=== PATIENT | male | born 1990 | race Caucasian/White ===

== ENCOUNTER → 2019-05-31 14:30 | Outpatient (BNVA) | payer BC, SELFPAY | PROVIDERS: Family Provider Pediatrics Adolescent Medicine; PCP Pediatrics Adolescent Medicine; Visit Provider Nurse Practitioner | DX: F90.0 Attention-deficit hyperactivity disorder, predominantly inattentive type (principal); F33.1 Major depressive disorder, recurrent, moderate | CPT/HCPCS: 99213 ==

== ENCOUNTER → 2019-08-30 08:25 | Outpatient (BNVA) | payer BC, SELFPAY | PROVIDERS: Family Provider Pediatrics Adolescent Medicine; PCP Pediatrics Adolescent Medicine; Visit Provider Nurse Practitioner | DX: F33.1 Major depressive disorder, recurrent, moderate (principal); F90.0 Attention-deficit hyperactivity disorder, predominantly inattentive type | CPT/HCPCS: 99213 ==

== ENCOUNTER → 2019-11-27 07:54 | Outpatient (BNVA) | payer BC, SELFPAY | PROVIDERS: Family Provider Pediatrics Adolescent Medicine; PCP Pediatrics Adolescent Medicine; Visit Provider Nurse Practitioner | DX: F33.1 Major depressive disorder, recurrent, moderate (principal); F90.0 Attention-deficit hyperactivity disorder, predominantly inattentive type; F41.1 Generalized anxiety disorder | CPT/HCPCS: 99214 ==

== ENCOUNTER → 2019-12-18 07:40 | Outpatient (BNVA) | payer BC, SELFPAY | PROVIDERS: Family Provider Pediatrics Adolescent Medicine; PCP Pediatrics Adolescent Medicine; Visit Provider Nurse Practitioner | DX: F90.0 Attention-deficit hyperactivity disorder, predominantly inattentive type (principal); F33.1 Major depressive disorder, recurrent, moderate | CPT/HCPCS: 99214 ==

== ENCOUNTER → 2020-01-10 08:09 | Outpatient (BNVA) | payer BC, SELFPAY | PROVIDERS: Family Provider Pediatrics Adolescent Medicine; PCP Pediatrics Adolescent Medicine; Visit Provider Nurse Practitioner | DX: F33.1 Major depressive disorder, recurrent, moderate (principal); F90.0 Attention-deficit hyperactivity disorder, predominantly inattentive type | CPT/HCPCS: 99214 ==

== ENCOUNTER → 2020-02-06 07:59 | Outpatient (BNVA) | payer BC, SELFPAY | PROVIDERS: Family Provider Pediatrics Adolescent Medicine; PCP Pediatrics Adolescent Medicine; Visit Provider Nurse Practitioner | DX: F33.1 Major depressive disorder, recurrent, moderate (principal); F90.0 Attention-deficit hyperactivity disorder, predominantly inattentive type | CPT/HCPCS: 99214 ==

== ENCOUNTER → 2020-03-17 07:35 | Outpatient (BNVA) | payer BC, SELFPAY | PROVIDERS: Family Provider Pediatrics Adolescent Medicine; PCP Pediatrics Adolescent Medicine; Visit Provider Nurse Practitioner | DX: F33.1 Major depressive disorder, recurrent, moderate (principal); F90.0 Attention-deficit hyperactivity disorder, predominantly inattentive type | CPT/HCPCS: 99214 ==

== ENCOUNTER → 2020-05-12 08:09 | Outpatient (BNVA) | payer BC, SELFPAY | PROVIDERS: Family Provider Pediatrics Adolescent Medicine; PCP Pediatrics Adolescent Medicine; Visit Provider Nurse Practitioner | DX: F33.1 Major depressive disorder, recurrent, moderate (principal); F90.0 Attention-deficit hyperactivity disorder, predominantly inattentive type | CPT/HCPCS: 99214 ==

== ENCOUNTER → 2020-07-16 07:34 | Outpatient (BNVA) | payer BC, SELFPAY | PROVIDERS: Family Provider Pediatrics Adolescent Medicine; PCP Pediatrics Adolescent Medicine; Visit Provider Nurse Practitioner | DX: F33.1 Major depressive disorder, recurrent, moderate (principal); F90.0 Attention-deficit hyperactivity disorder, predominantly inattentive type; F41.1 Generalized anxiety disorder | CPT/HCPCS: 99214 ==

== ENCOUNTER → 2020-10-16 07:51 | Outpatient (BNVA) | payer SELFPAY | PROVIDERS: Family Provider Pediatrics Adolescent Medicine; PCP Pediatrics Adolescent Medicine; Visit Provider Nurse Practitioner | DX: F33.1 Major depressive disorder, recurrent, moderate (principal); F90.0 Attention-deficit hyperactivity disorder, predominantly inattentive type | CPT/HCPCS: 99214 ==

== ENCOUNTER → 2021-06-15 14:24 | Outpatient (BNVA) | payer SELFPAY | PROVIDERS: Family Provider Pediatrics Adolescent Medicine; PCP Pediatrics Adolescent Medicine; Visit Provider Nurse Practitioner | DX: F19.939 Other psychoactive substance use, unspecified with withdrawal, unspecified (principal) | CPT/HCPCS: 80307 ==

== ENCOUNTER 2024-12-11 13:19 | Inpatient (IN) | payer SELFPAY ==
[2024-12-11] VITALS (10 sets, daily range): BP systolic 105–149; BP diastolic 54–120; PULSE 83–132; RESP 16–20; TEMP 36.7–37.5; O2SAT 90–98; BMI 33.2
--- NOTE | 2024-12-11 13:40 | ED_ITS ---
HPI - Abdominal Pain 2 General: Chief Complaint: Abdominal Pain Stated Complaint: buring pain in abd, nausea Time Seen by Provider: 12/11/24 13:31 History of Present Illness: 34-year-old male presents emergency room with periumbilical abdominal pain that began yesterday radiates into the right lower quadrant at times. No previous abdominal surgeries denies dysuria urgency or frequency. Has had a few loose stools but no donte diarrhea no hematochezia melena Associated Symptoms: Reports nausea and vomiting; Denies chills, dysuria, fever(s), hematochezia, hematemesis and melena Related Data Home Medications ?Medication ?Instructions ?Recorded ?Confirmed bupropion HCl 150 mg 24 hr tablet, 150 mg PO QAM 12/1112/11/24 extended release Allergies Allergy/AdvReac Type Severity Reaction Status Date / Time No Known Allergies Allergy Verified 08/06/24 10:10 Review of Systems 2 Const: Denies: fever(s) or chills Card: Denies: chest pain Resp: Denies: dyspnea GI: Reports: abdominal pain, nausea and vomiting; Denies: hematemesis, hematochezia or melena : Denies: dysuria, urinary frequency or urinary urgency Musc: Denies: neck pain or back pain Skin/Breast: Denies: rash PFSH ED 2 PFSH: Medical History Nicotine vapor product user Abstinent from drug misuse Psychiatric care Generalized anxiety disorder Major depressive disorder, recurrent, moderate Attention-deficit hyperactivity disorder, predominantly inattentive type Social History Smoking and tobacco/nicotine status: current every day tobacco/nicotine user cigarettes Packs smoked per day: 0.5 Years cigarettes smoked: 9 Quit status (tobacco/nicotine): has tried quititng Number of times tried to quit tobacco: 7 Second hand smoke exposure: Yes Alcohol intake: current Alcohol intake frequency: holidays/special occasions only Physical Exam 2 Const: GENERAL APPEARANCE: cooperative ORIENTATION/CONSCIOUSNESS: Yes awake, Yes oriented to person, Yes oriented to place and Yes oriented to time HENMT: COMMON NORMALS: normocephalic, atraumatic and hearing grossly normal bilaterally HEAD & SCALP: normocephalic and atraumatic Resp: COMMON NORMALS: normal respiratory effort, No retractions, No use of accessory muscles and clear to auscultation bilaterally AUSCULTATION: clear to auscultation bilaterally Cardio: COMMON NORMALS: regular rate, regular rhythm and No murmurs present (Cardio) RATE: regular rate RHYTHM: regular rhythm GI: COMMON NORMALS: Soft to palpation and No hepatosplenomegaly present A USCULTATION: Yes normoactive bowel sounds PALPATION: Yes Soft to palpation, No Tenderness to palpation present (GI), No Guarding due to palpation present (GI) and Yes No hepatosplenomegaly present Extremity: COMMON NORMALS: normal to inspection, capillary refill normal, no clubbing, cyanosis or edema, no calf tenderness and no pedal edema Neuro: SENSORIUM/ORIENTATION: Yes oriented to person, Yes oriented to place and Yes oriented to time Skin: COMMON NORMALS: no rashes or lesions noted GENERAL SKIN EXAM: no rashes or lesions noted Course 2 Vital Signs: Vital signs: Vital Signs Temperature 98.0 F 12/11/24 13:23 Pulse Rate 94 12/11/24 13:23 Respiratory Rate 16 12/11/24 13:23 Blood Pressure 147/91 12/11/24 13:23 Pulse Oximetry 96 12/11/24 13:23 Oxygen Delivery Me thod Room Air 12/11/24 13:23 MDM - Abdominal Pain Medical Decision Making Acute appendicitis on CT with significant leukocytosis patient given fluids and Zosyn discussed Dr. Juárez will admit to the floor, sick patient to surgery later this afternoon for acute appendectomy. Medical Records I reviewed the patient's medical records. Lab Data I reviewed the patient's lab results. 12/11/24 13:42 12/11/24 13:42 Labs/Radiology: Radiology Impressions Abdomen/Pelvis CT 12/11/24 14:06 IMPRESSION: 1. Acute appendicitis with a large amount of surrounding edema and free fluid adjacent to the cecum and extending into the pelvis. Appendicoliths are noted. Appendicolith at the base of the appendix and also within the tip of the appendix. Highly suspicious for appendiceal rupture. There is no abscess. There are a few adjacent reactive lymph nodes. 2. No renal obstruction. RIGHT ureter passes closely through the area of inflammation along the RIGHT psoas muscle. Laboratory Results WBC 27.71 10^3/uL (3.29-11.43) H 12/11/24 13:42 RBC 5.44 10^6/uL (3.85-5.65) 12/11/24 13:42 Hgb 15.20 g/dL (11.27-16.99) 12/11/24 13:42 Hct 44.3 % (37-53) 12/11/24 13:42 MCV 81.4 fl (82-101) L 12/11/24 13:42 MCH 27.9 pg (27-33) 12/11/24 13:42 MCHC 34.3 g/dL (30-55) 12/11/24 13:42 RDW 13.1 % (12.1-15.1) 12/11/24 13:42 Plt Count 237 10^3/cmm (157-399) 12/11/24 13:42 MPV 9.3 fL (7.4-10.4) 12/11/24 13:42 Neut % (Auto) 82.0 % 12/11/24 13:42 Lymph % (Auto) 8.4 % 12/11/24 13:42 [place] % (Auto) 8.8 % 12/11/24 13:42 Eos % (Auto) 0.0 % 12/11/24 13:42 Baso % (Auto) 0.2 % 12/11/24 13:42 Neut # (Auto) 22.74 10^3/uL (1.8-7.7) H 12/11/24 13:42 Lymph # (Auto) 2.3 10^3/uL (0.8-4.8) 12/11/24 13:42 [place] # (Auto) 2.4 10^3/uL (0.2-0.9) H 12/11/24 13:42 Eos # (Auto) 0.0 10^3/uL (0.0-0.8) 12/11/24 13:42 Baso # (Auto) 0.1 10^3/uL (0.0-0.1) 12/11/24 13:42 Nucleated RBC % (auto) 0 % 12/11/24 13:42 Nucleated RBCs # 0.0 /100WBC 12/11/24 13:42 Sodium 136 mmol/L (136-145) 12/11/24 13:42 Potassium 4.2 mmol/L (3.5-5.1) 12/11/24 13:42 Chloride 98 mmol/L (98-107) 12/11/24 13:42 Carbon Dioxide 23 mmol/L (22-29) 12/11/24 13:42 Anion Gap 19.2 (5-19) H 12/11/24 13:42 BUN 6 mg/dL (6-20) 12/11/24 13:42 Creatinine 0.7 mg/dL (0.7-1.2) 12/11/24 13:42 GFR Calculation 130.7 mL/min (90-130) H 12/11/24 13:42 Glucose 118 mg/dL (65-115) H 12/11/24 13:42 Calculated Osmolality 281 mOsm/kg (285-295) L 12/11/24 13:42 Calcium 9.3 mg/dL (8.5-10.5) 12/11/24 13:42 Total Bilirubin 0.8 mg/dL (0.15-1.2) 12/11/24 13:42 AST 17 U/L (0-40) 12/11/24 13:42 ALT 20 U/L (0-41) 12/11/24 13:42 Alkaline Phosphatase 64 U/L (40-130) 12/11/24 13:42 Total Protein 7.5 g/dL (6.6-8.7) 12/11/24 13:42 Albumin 4.5 g/dL (3.5-5.2) 12/11/24 13:42 Globulin 3.0 g/dL (1.3-4.6) 12/11/24 13:42 Lipase 12 U/L (13-60) L 12/11/24 13:42 All radiology interpretation(s) finalized by discharge Discharge Plan Discharge Patient Disposition: Placed in Observation Clinical Impression: Acute appendicitis Coding Level of Care Code ED Fly Rail Operator for Radha Sanchez
[2024-12-11 13:48] LABS: Hematocrit 44.3 % (37-53); Hemoglobin 15.20 g/dL (11.27-16.99); Mean Corpuscular HGB Conc 34.3 g/dL (30-55); Mean Corpuscular Hemoglobin 27.9 pg (27-33); Mean Corpuscular Volume 81.4 fl (82-101); Nucleated Red Blood Cells % 0 %; Platelet Count 237 10^3/cmm (157-399); Red Blood Count 5.44 10^6/uL (3.85-5.65); White Blood Count 27.71 10^3/uL (3.29-11.43)
[2024-12-11 14:06] LABS: Alanine Aminotransferase 20 U/L (0-41); Albumin Level 4.5 g/dL (3.5-5.2); Alkaline Phosphatase 64 U/L (40-130); Blood Urea Nitrogen 6 mg/dL (6-20); Calcium 9.3 mg/dL (8.5-10.5); Carbon Dioxide 23 mmol/L (22-29); Chloride 98 mmol/L (98-107); Creatinine Clr Calc Pharmacy 147.4166; Globulin 3.0 g/dL (1.3-4.6); Glucose 118 mg/dL (65-115); Lipase 12 U/L (13-60); Osmolality Calculated 281 mOsm/kg (285-295); Sodium 136 mmol/L (136-145); Total Protein 7.5 g/dL (6.6-8.7)
--- NOTE | 2024-12-11 14:06 | CT_ITS ---
WS: [id number] CT ABDOMEN AND PELVIS WITH CONTRAST HISTORY: Nausea and vomiting with abdominal pain. TECHNIQUE: Imaging performed of the abdomen and pelvis with IV contrast. Single phase imaging of the abdomen. Coronal and sagittal reformats are submitted. All CT scans at [facility] use at least one of these dose optimization techniques: automated exposure control; mA and/or kV adjustment per patient size (includes targeted exams where dose is matched to clinical indication); or iterative reconstruction. IV CONTRAST: Omnipaque 350; 100 mL IV. Oral contrast: No DLP: 842.03 mGy.cm COMPARISON: None available. Lower thorax: Lung bases are clear. Heart is normal size. No hiatal hernia. Liver/biliary system: Normal size with no intrahepatic dilatation. Gallbladder: Normal. No gallstones or wall thickening. No pericholecystic fluid. Pancreas: Normal size pancreas and pancreatic duct. No adjacent inflammation. Spleen: Normal size spleen. No mass or infarct. Adrenal glands: Normal. Right kidney: Normal. Left kidney: Normal. Aorta: Normal. Lymphadenopathy: None. Free fluid: Small amount of free fluid in the pelvis. GI tract: Significant acute inflammatory process in the RIGHT lower quadrant involving the appendix. There is an appendicolith at the base of the appendix. The appendix is dilated with wall enhancement and fluid-filled. The appendix measures 11 mm in diameter. Additional appendicolith in the tip of the appendix. There is edema and fluid surrounding the appendix. There is also adjacent fluid extending posterior to the cecum and extending along the RIGHT psoas muscle. There are a few small reactive lymph nodes associated with the inflammatory process. There is a small amount of air remaining within the lumen and at the tip of the appendix. Abdominal wall: Fat containing umbilical hernia. Pelvis: Small amount of free fluid. Bladder is negative. Bones: Unremarkable. CT/CT abdomen pelvis w con* [id number] IMPRESSION: 1. Acute appendicitis with a large amount of surrounding edema and free fluid adjacent to the cecum and extending into the pelvis. Appendicoliths are noted. Appendicolith at the base of the appendix and also within the tip of the append ix. Highly suspicious for appendiceal rupture. There is no abscess. There are a few adjacent reactive lymph nodes. 2. No renal obstruction. RIGHT ureter passes closely through the area of infla mmation along the RIGHT psoas muscle.
[2024-12-11 14:10] LABS: Anion Gap 19.2 (5-19); Potassium 4.2 mmol/L (3.5-5.1)
[2024-12-11 14:11] LABS: Aspartate Amino Transferase 17 U/L (0-40)
[2024-12-11] MEDS: iohexol 350 mg/mL 500 mL Btl (per mL) IV (14:15)
[2024-12-11] MEDS: piperacillin-tazobactam 3.375 GM in sodium chloride 0.9% (plus) 50 ML IV ×2 (15:42→21:51)
[2024-12-11] MEDS: morphine 4 mg/mL SDV 1 mL IVP (15:44)
[2024-12-11 16:04] LABS: Glucose Urine UA Negative (Normal); Nitrate Urine Negative (Negative)
[2024-12-11 16:10] LABS: Add Urine Microscopic? YES
[2024-12-11 16:15] LABS: Specific Gravity, Urine 1.075 (1.005-1.030)
[2024-12-11] MEDS: D5-NS 0.45% + KCL 20 mEq 20 MEQ/1,000 ML BAG 125 MEQ IV (17:02)
--- NOTE | 2024-12-11 18:23 | P.HP_ITS ---
Providers/Chief Complaint 2 Admitting Physician: Efren Juárez MD Chief Complaint: buring pain in abd, nausea History of Present Illness Zachary Oconnell is a 34 year old male who presented with acute appendicitis. Reports 1-2 days of pain. Nausea. Non peritonitic. TTP RLQ. Imaging consistent with acute appendicitis. WBC 27. HDs adequate. Afebrile. Medications/Allergies Home Medications ?Medication ?Instructions ?Recorded ?Confirmed ?Last Taken ?Type bupropion HCl 150 mg 24 hr tablet, 150 mg PO QAM 12/1112/11/24 Unknown History extended release Allergies Allergy/AdvReac Type Severity Reaction Status Date / Time No Known Allergies Allergy Verified 08/06/24 10:10 PFSH Acute 2 PFSH: Medical History (Updated 12/11/24 @ 15:27 by Dev Lanier DO) Nicotine vapor product user Abstinent from drug misuse Psychiatric care Generalized anxiety disorder Major depressive disorder, recurrent, moderate Attention-deficit hyperactivity disorder, predominantly inattentive type Social History Smoking and tobacco/nicotine status: current every day tobacco/nicotine user cigarettes Packs smoked per day: 0.5 Years cigarettes smoked: 9 Quit status (tobacco/nicotine): has tried quititng Number of times tried to quit tobacco: 7 Second hand smoke exposure: Yes Alcohol intake: current Alcohol intake frequency: holidays/special occasions only Vitals/I&O/Wt Last Vital Signs Temp 98.0 F 12/11/24 13:23 Pulse 85 12/11/24 15:00 Resp 16 12/11/24 15:44 BP 139/85 12/11/24 15:00 Pulse Ox 97 12/11/24 15:44 O2 Del Method Room Air 12/11/24 13:23 12/11/24 12/11/24 12/11/24 06:59 14:59 22:59 Intake Total 1050 / 1050 Balance 1050 / 1050 Weight last 48 hrs Weight 191 lb Physical Exam 2 Narrative: rrr unlabored breathing ra abdomen soft, ttp rlq, non peritonitic Data 12/11/24 13:42 12/11/24 13:42 A&P Assessment and plan 1. Acute appendicitis: Plan: 34 yo male admitted with acute appendicitis. Discussed risks and benefits and patient agreed to proceed with laparoscopic appendectomy, possible open. Started antibiotics. Will proceed to OR when available. PDMP PDMP Reviewed: Not Reviewed Attestations 2 Medical Necessity Statement*: IVFs, IV pain meds, IV antibiotics Coding Level of Care Code 77559 Diagnoses Acute appendicitis K35.80
--- NOTE | 2024-12-11 23:50 | PC.NURSE ---
Pt has been offered pain meds numerous times and he states he does not need them.
[2024-12-12] VITALS (19 sets, daily range): BP systolic 78–114; BP diastolic 43–71; PULSE 76–118; RESP 14–18; TEMP 36.4–38.1; O2SAT 92–96
[2024-12-12] MEDS: piperacillin-tazobactam 3.375 GM in sodium chloride 0.9% (plus) 50 ML IV ×3 (05:52→21:16)
--- NOTE | 2024-12-12 05:57 | PC.NURSE ---
pt left the floor with surgical nurse at this time.
--- NOTE | 2024-12-12 06:47 | P.ANESASSM_ITS ---
Pre-Anesthetic Assessment Height/Weight: Height 1.63 m Weight 87.589 kg Temp Pulse Resp BP Pulse Ox O2 Del Method 97.9 F 104 H 18 110/68 95 Room Air 12/12/24 06:18 12/12/24 06:18 12/12/24 06:18 12/12/24 06:18 12/12/24 06:18 12/12/24 06:18 Operation Date: 12/12/24 07:00 Proposed Procedures p Laparoscopic Appendectomy(Not Applicable) - Efren Juárez MD Familial anesthetic complications: None Was Beta Radha taken within 24 hours: N/A Was Clonidine taken within 24 hours: N/A Last intake: Intake Last Liquid Date 12/11/24 Last Solid Date 12/11/24 Social No alcohol and No tobacco vapes Exam alert, oriented x 3, clear to auscultation bilaterally and regular rate & rhythm Airway Mallampati: Class II Dentition: chipped and other (poor dentition) Anesthetic Plan ASA status: 1 Anesthesia: General Risk of > 500 ml blood loss (7ml/kg in children): No Medications/Allergies Home Medications ?Medication ?Instructions ?Recorded ?Confirmed ?Last Taken ?Type bupropion HCl 150 mg 24 hr tablet, 150 mg PO QAM 12/1112/11/24 Unknown History extended release Allergies Allergy/AdvReac Type Severity Reaction Status Date / Time No Known Allergies Allergy Verified 08/06/24 10:10 Current Medications Generic Name Dose Route Start Last Admin Trade Name Freq PRN Reason Stop Dose Admin Piperacillin Sod/Tazobactam 50 mls @ 12.5 mls/hr 12/11/24 22:00 12/12/24 05:52 Sod 3.375 gm/ Sodium Chloride IV 12.5 mls/hr On Hold: 12/12/24 06:17 Q8H YADIRA Administration Comment: Order held by Process Protocol Transfer Sodium Chloride 1,000 mls @ 75 mls/hr 12/11/24 18:30 12/11/24 19:32 Sodium Chloride 0.9% IV 75 mls/hr On Hold: 12/12/24 06:17 .[id number] YADIRA Administration Comment: Order held by Process Transfer [facility] Anesthesia Medical History (Updated 12/11/24 @ 15:27 by Dev Lanier DO) Nicotine vapor product user Abstinent from drug misuse Psychiatric care Generalized anxiety disorder Major depressive disorder, recurrent, moderate Attention-deficit hyperactivity disorder, predominantly inattentive type Social History Smoking and tobacco/nicotine status: current every day tobacco/nicotine user cigarettes Packs smoked per day: 0.5 Years cigarettes smoked: 9 Quit status (tobacco/nicotine): has tried quititng Number of times tried to quit tobacco: 7 Second hand smoke exposure: Yes Alcohol intake: current Alcohol intake frequency: holidays/special occasions only Data Anesthesia 12/11/24 13:42 12/11/24 13:42 Short CBC 12/11/24 Range/Units 13:42 WBC 27.71 H (3.29-11.43) 10^3/uL Hgb 15.20 (11.27-16.99) g/dL Hct 44.3 (37-53) % MCV 81.4 L (82-101) fl Plt Count 237 (157-399) 10^3/cmm Neut % (Auto) 82.0 % Neut # (Auto) 22.74 H (1.8-7.7) 10^3/uL BMP 12/11/24 13:42 Sodium 136 Potassium 4.2 Chloride 98 Carbon Dioxide 23 BUN 6 Creatinine 0.7 Glucose 118 H Calcium 9.3 Liver Function 12/11/24 Range/Units 13:42 Total Bilirubin 0.8 (0.15-1.2) mg/dL AST 17 (0-40) U/L ALT 20 (0-41) U/L Alkaline Phosphatase 64 (40-130) U/L Albumin 4.5 (3.5-5.2) g/dL Urine 12/11/24 Range/Units 15:47 Urine Color Yellow (Yellow) Urine Appearance Clear (CLEAR) Urine pH 6.5 (5-7) Ur Specific [place] 1.075 H (1.005-1.030) Urine Protein Trace A (Negative) Urine Glucose (UA) Negative (Normal) Urine Ketones 3+ H (Negative) Urine Nitrate Negative (Negative) Urine Bilirubin Negative (Negative) Ur Leukocyte Esterase Negative (Negative) Urine RBC 0-2 (0-2) /hpf Urine WBC 0-5 (0-5) /hpf
--- NOTE | 2024-12-12 06:57 | P.PN_ITS ---
Subjective 2 Subjective: Afebrile Abdomen benign tender right lower quadrant Vitals/I&O/Wt Last Vital Signs Temp 97.9 F 12/12/24 06:18 Pulse 104 H 12/12/24 06:18 Resp 18 12/12/24 06:18 BP 110/68 12/12/24 06:18 Pulse Ox 95 12/12/24 06:18 O2 Del Method Room Air 12/12/24 06:18 12/11/24 12/11/24 12/12/24 14:59 22:59 06:59 Intake Total 1250 / 1250 50 / 1300 Output Total 400 / 400 300 / 700 Balance 850 / 850 -250 / 600 Weight last 48 hrs Weight 193 lb 1.6 oz Weight 193 lb 8 oz Weight 191 lb Physical Exam 2 Narrative: Chest: Unlabored breathing room air. No lymphadenopathy. Heart: Regular rate and rhythm. Abdomen: Soft, tender, mildly distended. No masses or lymphadenopathy. Data 12/11/24 13:42 12/11/24 13:42 A&P Assessment and plan 1. Acute appendicitis: Plan: 34-year-old male who presented with acute appendicitis. Discussed risk and benefits and patient agreed to proceed with laparoscopic appendectomy possible open. PDMP PDMP Reviewed: Not Reviewed Attestations 2 Medical Necessity Statement*: N/A Coding Level of Care Code 10444 Diagnoses Acute appendicitis K35.80
[2024-12-12] MEDS: BUPivacaine 0.25% INJ 10 mL INJECTION (07:55)
[2024-12-12] MEDS: lidocaine-epi 1% 20 mL INJ INJECTION (07:55)
--- NOTE | 2024-12-12 08:00 | P.OP_ITS ---
Operative Report Date of procedure: December 12, 2024 Pre-op diagnosis: Acute appendicitis Post-op diagnosis: Perforated appendicitis with a periappendiceal abscess Post-op findings: Perforated appendicitis with a periappendiceal abscess. Able to dissect and resect appendix. Washed out the abdomen with 2 L NS. Left a 19 [place] Aj drain in the right pericolic gutter. Staple line intact. Cecum and small bowel intact at end of case. Procedure done: Laparoscopic appendectomy Implants: N/A Specimens removed/disposition: Appendix sent to pathology Pathology: Appendix sent to pathology Surgeon: Efren Juárez MD Separator Operator: N/A Anesthesia: General Estimated blood loss (mL): 20 Complications: N/A Findings: Perforated appendicitis with a periappendiceal abscess. Able to dissect and resect appendix. Washed out the abdomen with 2 L NS. Left a 19 [place] Aj drain in the right pericolic gutter. Staple line intact. Cecum and small bowel intact at end of case. Condition: stable Disposition: observation Brief History: 34-year-old male who presented with acute appendicitis. Discussed risk and benefits and patient agreed to proceed with laparoscopic appendectomy possible open. Procedure: After having a discussion about risks and benefits and obtaining consent, patient was brought to the OR. SCDs were functioning prior to intubation. Zosyn was given prior to incision. General anesthesia was administered. Arms were tucked. A carr catheter was placed. The abdomen was prepped and draped in the usual sterile fashion. Insufflation was achieved using a Veress needle at Guillen's point (15mmHg). A 5mm port was placed at the umbilicus using an optical view port. Then a 5mm port was placed suprapubically, and a 12mm port was placed in the left lower quadrant. The abdomen was inspected and no injuries were noted. Patient was placed in Trendelenburg and the table was rotated left. Using atraumatic bowel graspers the small bowel was placed on the left side of the abdomen, revealing the cecum and inflammed appendix, as well as a large periappendiceal abscess. Significant inflammatory changes in the right iliac fossa. The appendix was dissected off the pelvic side wall bluntly. The appendix was grasped and the mesoappendix was taken down using a Ligasure. The base of the appendix was found to be intact. I proceeded to staple off the appendix at its base using a laparoscopic stapler with a blue load. The appendix was then retrieved using an endocatch bag. The staple line on the cecum was inspected, and found to be intact. The cecum and terminal ileum were inspected and found to be intact. I washed out the abdomen using 2L NS and left a 19F aj drain in the right pericolic gutter. The abdomen was desufflated and skin was closed using 4-0 monocryl and surgical glue. Drain secured using 3-0 nylon. Carr was removed at the end of the case. The patient woke up from anesthesia and was transferred to PACU without any complications
--- NOTE | 2024-12-12 08:35 | ANE.PACU2 ---
Inpatient post-anesthesia follow up: Airway intact: Yes Vital signs: Temperature 97.9 F Pulse Rate 86 Respiratory Rate 17 Blood Pressure 91/52 Pulse Oximetry 94 Oxygen Delivery Me thod Room Air Oxygen Flow Rate 10 Fraction of Inspir ed Oxygen Hydration adequate: Yes Nausea and vomiting: No Pain level: 1 Mental status: Baseline
--- NOTE | 2024-12-12 08:55 | PC.NURSE ---
Pt to room 262 from PACU. VSS. Denies pain at this time. 50ml serous drng emptied from smitha drain. Pt denies needs at this time. Call light within reach.
[2024-12-12] MEDS: MELATONIN 3 MG TABLET PO (21:16)
[2024-12-13 00:38] VITALS: BP 100/57; PULSE 76; RESP 14; TEMP 36.7; O2SAT 93
[2024-12-13 04:34] VITALS: BP 100/58; PULSE 93; RESP 16; TEMP 36.7; O2SAT 95
[2024-12-13] MEDS: piperacillin-tazobactam 3.375 GM in sodium chloride 0.9% (plus) 50 ML IV (05:27)
[2024-12-13 08:14] VITALS: BP 103/65; PULSE 76; RESP 16; TEMP 36.4; O2SAT 97
[2024-12-13 08:43] VITALS: RESP 18
[2024-12-13] MEDS: oxyCODONE 5 mg IR Tab/Cap PO (08:43)
--- NOTE | 2024-12-13 08:52 | P.PN_ITS ---
Subjective 2 Subjective: Pain control Afebrile Hemodynamics are adequate Drain serosanguineous Tolerating diet Vitals/I&O/Wt Last Vital Signs Temp 97.6 F 12/13/24 08:14 Pulse 76 12/13/24 08:14 Resp 18 12/13/24 08:43 BP 103/65 12/13/24 08:14 Pulse Ox 97 12/13/24 08:14 O2 Del Method Room Air 12/13/24 08:14 O2 Flow Rate 10 12/12/24 08:23 12/12/24 12/13/24 12/13/24 22:59 06:59 14:59 Intake Total 530 / 1640 1463.75 / 3103.75 Output Total 1700 / 2265 Balance -1170 / -625 1463.75 / 838.75 Weight last 48 hrs Weight 194 lb 8 oz Weight 193 lb 1.6 oz Weight 193 lb 8 oz Weight 191 lb Physical Exam 2 Narrative: Chest: Unlabored breathing room air. No lymphadenopathy. Heart: Regular rate and rhythm. Abdomen: Soft, appropriately tender, nondistended. No masses or lymphadenopathy. Drain is serosanguineous. Incisions are clean dry intact Urinary Catheter Management: Woods: Cath Placed During This Visit: yes, but has since been removed by the nurse Urinary Catheter Date of Insertion: 12/12/24 Urinary Catheter Time of Insertion: 07:15 Date Urinary Catheter Removed: 12/12/24 Time Urinary Catheter Discontinued: 07:59 Data 12/11/24 13:42 12/11/24 13:42 A&P Assessment and plan 1. Acute appendicitis: Plan: 34-year-old male who presented with perforated appendicitis and a periappendiceal abscess. Cleared for discharge. 7 days of antibiotics as outpatient. Keep drain until his follow-up in 2 weeks. PDMP PDMP Reviewed: Last Reviewed 12/13/24 11:06 EDT by Efren Jáurez MD Attestations 2 Medical Necessity Statement*: IV pain meds, IV fluids, IV antibiotics. Perforated appendicitis with a periappendiceal abscess. Required IV fluids and IV antibiotics postoperatively Coding Level of Care Code 72360 Diagnoses Acute appendicitis K35.80
--- NOTE | 2024-12-13 08:53 | PM.DCS ---
Discharge Providers Date of Admission: 12/12/24 08:05 Date of Discharge: December 13, 2024 Attending Provider at Admission: Efren Juárez MD Attending Provider at Discharge: Efren Juárez MD Diagnoses at Discharge Discharge Diagnosis 1. Acute appendicitis: Reason for Visit Reason for Visit: buring pain in abd, nausea Hospital Course Hospital Course 34-year-old male who presented with a perforated appendicitis. Treated with IV antibiotics. Taken tomorrow for laparoscopic appendectomy. Placed a drain. Washed out the abdomen. Patient required postoperative resuscitation with IV fluids and IV antibiotics. Did well on postoperative day 1. Discharge. Will follow-up in clinic with drain. Discharging on p.o. antibiotics. Physical Exam Narrative: Chest: Unlabored breathing room air. No lymphadenopathy. Heart: Regular rate and rhythm. Abdomen: Soft, appropriately tender. Drain serosanguineous. Incisions clean dry and intact. Urinary Catheter Management: Woods: Cath Placed During This Visit: yes, but has since been removed by the nurse Urinary Catheter Date of Insertion: 12/12/24 Urinary Catheter Time of Insertion: 07:15 Date Urinary Catheter Removed: 12/12/24 Time Urinary Catheter Discontinued: 07:59 Discharge Data Studies Completed and Pending Completed Studies During Hospitalization Category Date Time Status CT abdomen pelvis w con* [id number] Stat Cat Scan 12/11/24 14:06 Completed Pending at discharge Category Date Time Status Pathology: Surgical [PTH] Routine Pth 12/12/24 11:07 Received Radiology Impressions Abdomen/Pelvis CT 12/11/24 14:06 IMPRESSION: 1. Acute appendicitis with a large amount of surrounding edema and free fluid adjacent to the cecum and extending into the pelvis. Appendicoliths are noted. Appendicolith at the base of the appendix and also within the tip of the appendix. Highly suspicious for appendiceal rupture. There is no abscess. There are a few adjacent reactive lymph nodes. 2. No renal obstruction. RIGHT ureter passes closely through the area of inflammation along the RIGHT psoas muscle. Laboratory Results WBC 27.71 10^3/uL (3.29-11.43) H 12/11/24 13:42 RBC 5.44 10^6/uL (3.85-5.65) 12/11/24 13:42 Hgb 15.20 g/dL (11.27-16.99) 12/11/24 13:42 Hct 44.3 % (37-53) 12/11/24 13:42 MCV 81.4 fl (82-101) L 12/11/24 13:42 MCH 27.9 pg (27-33) 12/11/24 13:42 MCHC 34.3 g/dL (30-55) 12/11/24 13:42 RDW 13.1 % (12.1-15.1) 12/11/24 13:42 Plt Count 237 10^3/cmm (157-399) 12/11/24 13:42 MPV 9.3 fL (7.4-10.4) 12/11/24 13:42 Neut % (Auto) 82.0 % 12/11/24 13:42 Lymph % (Auto) 8.4 % 12/11/24 13:42 Fleming % (Auto) 8.8 % 12/11/24 13:42 Eos % (Auto) 0.0 % 12/11/24 13:42 Baso % (Auto) 0.2 % 12/11/24 13:42 Neut # (Auto) 22.74 10^3/uL (1.8-7.7) H 12/11/24 13:42 Lymph # (Auto) 2.3 10^3/uL (0.8-4.8) 12/11/24 13:42 Fleming # (Auto) 2.4 10^3/uL (0.2-0.9) H 12/11/24 13:42 Eos # (Auto) 0.0 10^3/uL (0.0-0.8) 12/11/24 13:42 Baso # (Auto) 0.1 10^3/uL (0.0-0.1) 12/11/24 13:42 Nucleated RBC % (auto) 0 % 12/11/24 13:42 Nucleated RBCs # 0.0 /100WBC 12/11/24 13:42 Sodium 136 mmol/L (136-145) 12/11/24 13:42 Potassium 4.2 mmol/L (3.5-5.1) 12/11/24 13:42 Chloride 98 mmol/L (98-107) 12/11/24 13:42 Carbon Dioxide 23 mmol/L (22-29) 12/11/24 13:42 Anion Gap 19.2 (5-19) H 12/11/24 13:42 BUN 6 mg/dL (6-20) 12/11/24 13:42 Creatinine 0.7 mg/dL (0.7-1.2) 12/11/24 13:42 GFR Calculation 130.7 mL/min (90-130) H 12/11/24 13:42 Glucose 118 mg/dL (65-115) H 12/11/24 13:42 Calculated Osmolality 281 mOsm/kg (285-295) L 12/11/24 13:42 Calcium 9.3 mg/dL (8.5-10.5) 12/11/24 13:42 Total Bilirubin 0.8 mg/dL (0.15-1.2) 12/11/24 13:42 AST 17 U/L (0-40) 12/11/24 13:42 ALT 20 U/L (0-41) 12/11/24 13:42 Alkaline Phosphatase 64 U/L (40-130) 12/11/24 13:42 Total Protein 7.5 g/dL (6.6-8.7) 12/11/24 13:42 Albumin 4.5 g/dL (3.5-5.2) 12/11/24 13:42 Globulin 3.0 g/dL (1.3-4.6) 12/11/24 13:42 Lipase 12 U/L (13-60) L 12/11/24 13:42 Urine Color Yellow (Yellow) 12/11/24 15:47 Urine Appearance Clear (CLEAR) 12/11/24 15:47 Urine pH 6.5 (5-7) 12/11/24 15:47 Ur Specific [place] 1.075 (1.005-1.030) H 12/11/24 15:47 Urine Protein Trace (Negative) A 12/11/24 15:47 Urine Glucose (UA) Negative (Normal) 12/11/24 15:47 Urine Ketones 3+ (Negative) H 12/11/24 15:47 Urine Blood Negative (Negative) 12/11/24 15:47 Urine Nitrate Negative (Negative) 12/11/24 15:47 Urine Bilirubin Negative (Negative) 12/11/24 15:47 Urine Urobilinogen 1.0 mg/dL (Negative) 12/11/24 15:47 Ur Leukocyte Esterase Negative (Negative) 12/11/24 15:47 Urine RBC 0-2 /hpf (0-2) 12/11/24 15:47 Urine WBC 0-5 /hpf (0-5) 12/11/24 15:47 Ur Squamous Epith Cells 0-5 /hpf (0-5) 12/11/24 15:47 Amorphous Sediment Not Reportable 12/11/24 15:47 Urine Bacteria None seen /hpf (NONE) 12/11/24 15:47 Hyaline Casts 0-4 /lpf H 12/11/24 15:47 Vitals Last Vital Signs Temp 97.6 F 12/13/24 08:14 Pulse 76 12/13/24 08:14 Resp 18 12/13/24 08:43 BP 103/65 12/13/24 08:14 Pulse Ox 97 12/13/24 08:14 O2 Del Method Room Air 12/13/24 08:14 O2 Flow Rate 10 12/12/24 08:23 Discharge Plan Discharge Patient Disposition: Home Condition: Stable Prescriptions: New amoxicillin-pot clavulanate 875-125 mg tablet 1 tab PO Q12H 7 Days Qty: 14 0RF oxycodone 5 mg tablet 5 mg PO Q6H PRN (Reason: pain) 10 Days Qty: 20 0RF Continued bupropion HCl 150 mg tablet extended release 24 hr 150 mg PO QAM Discharge Order = DC NOW: Discharge Order (Routine); Ordered 12/13/24 Ordered By: Efren Juárez Referrals: Efren Juárez MD [Physician, General Surgery] - 12/24/24 10:45 am Referral Note: Agueda Andrews FNP [Referring, Nurse Practitioner] - 12/20/24 2:00 pm Discharge Diet: Usual diet Discharge Activity: Limit activity as instructed Patient Instructions: Amoxicillin/Clavulanate Potassium (By mouth), Oxycodone, Rapid Release (By mouth), Appendicitis (GEN), Acute Wound Care (DC), Laparoscopic Appendectomy (DC), Opioid Safety, Post Anesthesia Care, Pain Management, Patient Portal & Girma Instructions Activity Restrictions/Additional Instructions: 1. No heavy exercise or lifting greater than 10lbs for 6 weeks. 2. No pools, saunas, bathtubs for 2 weeks. Ok to shower the day following surgery. Ok to remove any dressings you may have the day following surgery. Strip drain daily. Empty drain daily. 3. Do not drive if taking narcotics. 4. You may take over the counter tylenol 650mg every 6 hrs and ibuprofen 400mg every 6 hrs as needed for 5 days in addition to the oxycodone. 5. Follow-up in clinic in 2 weeks. 6. Call the office if you have any concerns or questions. Discharge Attestations Time Spent in Discharge Care*: greater than 30 min Quality Metrics Clinical Quality Measures [ No reported AMI, CVA or VTE this stay] Coding Level of Care Code Acute Code for [facility] Fwd Diagnoses Acute appendicitis K35.80
[2024-12-13 09:55] VITALS: BP 103/65; PULSE 76; RESP 16; TEMP 36.8; O2SAT 98
--- NOTE | 2024-12-13 09:55 | PC.NURSE ---
Addendum entered by Elidia Flood RN 12/13/24 12:40: Patient ambulated to his private car with a steady gait. Original Note: Patient is A&Ox3. Respirations even and non-labored on room air. Reviewed discharge instructions with patient at this time. Patient was verbally taught how to drain his Aj drain and then he demonstration how to do it as well. Patient verbalized understanding of how to take the medication and when his follow up is.
== END 2024-12-13 09:55 | disposition home or self-care (01) | DRG 398 ==
LOC: ER 15:54 → MEDSURG 17:02
PROVIDERS: Emergency Medicine; Admitting Provider Student in an Organized Health Care Education/Training Program; Emergency Provider Family Medicine; Visit Provider Student in an Organized Health Care Education/Training Program
PROC: 0DTJ4ZZ Resection of Appendix, Percutaneous Endoscopic Approach (ICD-10-PCS; CPT 44970; principal; 2024-12-12 07:00)
DX: K35.33 Acute appendicitis with perforation, localized peritonitis, and gangrene, with abscess (principal); F33.9 Major depressive disorder, recurrent, unspecified; F17.210 Nicotine dependence, cigarettes, uncomplicated
CPT/HCPCS: 36415; 51702; 74177; 80053; 81001; 83690; 85025; 88304; A4216; G0378; J0131; J1100; J1171; J1885; J2250; J2270; J2405; J2543; J2704; J2710; J3010; J3490; J7030; J9999